=== PATIENT | male | born 1960 ===

== ENCOUNTER 2021-12-30 05:55 | Day surgery (SDC) | payer OTHER ==
[~2021-12-30 05:55] MED LIST: COZAAR50 MG PO; GLYXAMBI 10 MG1 EACH PO; PROSC PO; TOPROL XL25 M1 PO; ZETIA10 MG PO
== END 2021-12-30 10:25 | disposition home or self-care (01) ==
LOC: CIR.AMB 05:55
PROVIDERS: ATTEND Orthopaedic Surgery Hand Surgery
DX: M72.0 Palmar fascial fibromatosis [Dupuytren] (principal); F17.200 Nicotine dependence, unspecified, uncomplicated; F10.21 Alcohol dependence, in remission; Z85.038 Personal history of other malignant neoplasm of large intestine; I10 Essential (primary) hypertension